=== PATIENT | male | born 1940 | race Caucasian/White ===

== ENCOUNTER 2018-11-03 07:48 | Outpatient (CLI) | payer MEDICARE | END 2018-11-03 07:49 | disposition home or self-care (01) | LOC: LABBT 07:48 | PROVIDERS: ATTEND Thoracic Surgery (Cardiothoracic Vascular Surgery) | DX: Z01.818 Encounter for other preprocedural examination (principal); I25.10 Atherosclerotic heart disease of native coronary artery without angina pectoris | CPT/HCPCS: 93005; 93010 ==

== ENCOUNTER 2018-11-03 10:15 | Inpatient (IN) | payer MEDICARE ==
[2018-11-03 12:39] LABS: Hemoglobin 13.1 g/dL (14.0-18.0); Mean Corpuscular Hemoglobin 31.5 pg (27.0-31.0); Mean Platelet Volume 6.5 fL (7.4-10.4); Platelet Count 237 thou/uL (130-400); RBC Distribution Width 12.1 % (11.5-14.5); Red Blood Cell (RBC) Count 4.16 mill/uL (4.70-6.10); White Blood Cell (WBC) Count 9.6 thou/uL (4.8-10.8)
[2018-11-03 12:58] LABS: Anion Gap 13 mmol/L (10-20); BUN (Urea Nitrogen) 22 mg/dL (8.4-25.7); Calc. Creatinine Clearance 0 mL/min (70-130); Carbon Dioxide 24 mmol/L (23-31); Chloride 106 mmol/L (98-107); Estimated GFR-MDRD 63; Glucose 98 mg/dL (83-110); Potassium 4.2 mmol/L (3.5-5.1); Sodium 139 mmol/L (136-145)
[2018-11-06] MEDS ORDERED: Fentanyl 100 MCG/2 ML VIAL ONE (06:32)
[2018-11-06] MEDS ORDERED: Vecuronium 10 MG VIAL ONE ×2 (06:32→20:35)
[2018-11-06] MEDS ORDERED: Dexmedetomidine 200 MCG/2 ML VIAL ONE (06:32)
[2018-11-06] MEDS ORDERED: Midazolam HCl 5 mg/5 ml Vial ONE (06:32)
[2018-11-06] MEDS ORDERED: Midazolam HCl 2 mg/2 ml Vial ONE (06:32)
[2018-11-06] MEDS ORDERED: Albumin 5% 500 ML ONE (06:35)
[2018-11-06] MEDS ORDERED: Heparin 10,000 UNITS/1 ML VIAL 30,000 UNITS in Sodium Chloride 0.9% 1,000 ML FS SCH (06:45)
[2018-11-06] MEDS ORDERED: Heparin 10,000 UNITS/1 ML VIAL ONE (08:49)
[2018-11-06] MEDS ORDERED: DOPamine 400 MG/D5W 250 ML 250 ML IVPB PRN (13:12)
[2018-11-06] MEDS ORDERED: Bisacodyl 5 MG TAB PO PRN (13:12)
[2018-11-06] MEDS ORDERED: Potassium Chloride 20 MEQ/100 ML PREMIX BAG IVPB PRN (13:12)
[2018-11-06] MEDS ORDERED: Nitroglycerin 50 MG/250 ML BOT 250 ML IVPB PRN (13:12)
[2018-11-06] MEDS ORDERED: niCARdipine 25 MG in Sodium Chloride 0.9% 250 ML 240 ML IVPB PRN (13:12)
[2018-11-06] MEDS ORDERED: Ondansetron PF 4 MG/2 ML Vial IVP PRN (13:12)
[2018-11-06] MEDS ORDERED: HYDROcodone/Acetaminophen 5/325 mg Tablet PO PRN (13:12)
[2018-11-06] MEDS ORDERED: hydrALAZINE 20 MG/ML VIAL SLOW IVP PRN (13:12)
[2018-11-06] MEDS ORDERED: Fentanyl 100 MCG/2 ML VIAL SLOW IVP PRN (13:12)
[2018-11-06] MEDS ORDERED: Norepinephrine 8 MG/0.9% NS 250 ML IVPB PRN (13:12)
[2018-11-06] MEDS ORDERED: Guaifenesin DM 100-10/5 ML UDCUP PO PRN (13:12)
[2018-11-06] MEDS ORDERED: Hetastarch 6% 500 ML 500 ML IVPB PRN (13:12)
[2018-11-06] MEDS ORDERED: Post-Op Insulin Drip Protocol IVPB ONE (13:12)
[2018-11-06] MEDS ORDERED: Acetaminophen 325 MG TAB PO PRN (13:12)
[2018-11-06] MEDS ORDERED: Mag-Al 1200 mg/1200 mg/30 ML UDCUP PO PRN (13:12)
[2018-11-06] MEDS ORDERED: Promethazine HCl 25 MG/ML VIAL IM PRN (13:12)
[2018-11-06] MEDS ORDERED: Morphine 2 MG/ML SYRINGE SLOW IVP PRN (13:12)
[2018-11-06] MEDS ORDERED: Bisacodyl 10 MG SUPP PR PRN (13:12)
[2018-11-06] MEDS ORDERED: HUMULIN R 100 UNITS in Sodium Chloride 0.9% 100 ML IVPB SCH (13:13)
[2018-11-06] MEDS ORDERED: Dextrose 50% Abboject 50 ML SYRINGE SLOW IVP PRN (13:13)
[2018-11-06] MEDS ORDERED: Dextrose 5% in Water 1,000 ML IV PRN (13:13)
[2018-11-06] MEDS ORDERED: Insulin Regular 300 UNITS/3 ML VIAL SC PRN (13:13)
[2018-11-06 13:14] LABS: Actual Bicarbonate (HCO3a) 22.5 mEq/L (22-28); Base Excess (BEa) -3.1 mEq/L (-2.0 to +3.0); CO2 Tension 42.3 mmHg (35.0-45.0); Calcium, Ionized 1.13 mmol/L (1.12-1.30); Hemoglobin (Hb) 13.4 g/dL (14.0-18.0); O2 Tension (PaO2) 77.6 mmHg (> 70.0); Potassium - ABG Lab 4.09 mmol/L (3.70-5.30); pH, Arterial 7.34 (7.35-7.45)
--- NOTE | 2018-11-06 13:18 | RAD ---
EXAM: Single view of the chest HISTORY: Status post open heart surgery COMPARISON: None FINDINGS: Single view of the chest shows an enlarged cardiomediastinal silhouette. The patient is st atus post sternotomy. A central venous catheter seen with its tip at the atriocaval junction. Mediastinal drains are seen. No pneumothorax is seen. There is no evidence of consolidation, mass, o r pleural effusion. The bones are unremarkable. IMPRESSION: Appropriate position of lines and tubes status post sternotomy
[2018-11-06 13:20] LABS: ALV-art Gradient 154.725 (0-20); Puncture Site ART LINE
[2018-11-06 13:22] LABS: #Eosinphils 0.1 thou/uL (0.0-0.7); #Monocytes 0.7 thou/uL (0.11-0.59); #Neutrophils 16.9 thou/uL (1.40-6.50); %Basophils 0.1 % (0.0-1.0); %Eosinophils 0.7 % (0.0-10.0); %Lymphocytes 10.2 % (21.0-51.0); %Monocytes 3.6 % (0.0-10.0); %Neutrophils 85.4 % (42.0-75.0); Mean Corpuscular HGB CONC 34.1 g/dL (32.0-36.0); Mean Corpuscular Hemoglobin 31.2 pg (27.0-31.0); Mean Corpuscular Volume 91.6 fL (78.0-98.0); Mean Platelet Volume 6.8 fL (7.4-10.4); Platelet Count 214 thou/uL (130-400); RBC Distribution Width 12.2 % (11.5-14.5); Red Blood Cell (RBC) Count 4.15 mill/uL (4.70-6.10); White Blood Cell (WBC) Count 19.8 thou/uL (4.8-10.8)
[2018-11-06] MEDS: Fentanyl 100 MCG/2 ML VIAL SLOW IVP PRN ×2 (13:27→15:40)
[2018-11-06 13:28] LABS: PTT 26.4 SEC (22.9-36.1)
[2018-11-06 13:29] LABS: INR-International Normal Ratio 1.3; Prothrombin Time 16.5 SEC (12.0-14.7)
[2018-11-06] MEDS ORDERED: Magnesium 2 GM/50 ML 2 GM in Premix Bag 1 BAG IVPB SCH (13:30)
[2018-11-06] MEDS: Lactated Ringer's 1,000 ML IV SCH (13:34)
[2018-11-06 13:43] LABS: Anion Gap 14 mmol/L (10-20); BUN (Urea Nitrogen) 21 mg/dL (8.4-25.7); Calc. Creatinine Clearance 71 mL/min (70-130); Calcium 8.4 mg/dL (7.8-10.44); Carbon Dioxide 23 mmol/L (23-31); Chloride 107 mmol/L (98-107); Estimated GFR-MDRD 52; Glucose 196 mg/dL (83-110); Potassium 4.1 mmol/L (3.5-5.1); Sodium 140 mmol/L (136-145)
[2018-11-06] MEDS: CEFAZOLIN 2 GM in Premix Bag 1 BAG IVPB SCH ×2 (13:45→21:00)
[2018-11-06 13:55] VITALS: BMI 36.9
[2018-11-06] MEDS ORDERED: Ketorolac Tromethamine 30 MG/ML VIAL IVP SCH (18:00)
[2018-11-06 18:51] LABS: Hemoglobin 12.6 g/dL (14.0-18.0)
[2018-11-06 19:09] LABS: Potassium 4.3 mmol/L (3.5-5.1)
[2018-11-06] MEDS: Ibuprofen 800 MG TAB PO SCH (19:37)
[2018-11-06] MEDS: Famotidine/PF 20 mg/2ml Vial SLOW IVP SCH (20:12)
[2018-11-06] MEDS: Simvastatin 40 MG TAB PO SCH (20:12)
[2018-11-06] MEDS ORDERED: Calcium Chloride 1 GM/10 ML Abboject SYRINGE ONE (20:35)
[2018-11-06] MEDS ORDERED: Lidocaine 2% PF 100 mg/5 ml Syringe ONE (20:35)
[2018-11-06] MEDS ORDERED: Potassium Chloride 60 MEQ/30 ML VIAL ONE (20:35)
[2018-11-06] MEDS ORDERED: Protamine Sulfate 250 MG/25 ML VIAL ONE (20:35)
[2018-11-06] MEDS ORDERED: Norepinephrine 4 MG/4 ML VIAL ONE (20:35)
[2018-11-06] MEDS ORDERED: Dexamethasone 20 MG/5 ML VIAL ONE (20:35)
[2018-11-06] MEDS ORDERED: Magnesium 5 GM/10 ML VIAL ONE (20:35)
[2018-11-06] MEDS ORDERED: Glycopyrrolate 0.2 MG/ML 5 ML SYRINGE ONE (20:35)
[2018-11-06] MEDS ORDERED: Sodium Bicarb 50 MEQ/50 ML VIAL ONE (20:35)
[2018-11-06] MEDS ORDERED: Heparin 30,000 units/30 ml VIAL ONE (20:35)
[2018-11-06] MEDS ORDERED: Heparin 5,000 UNITS/ML VIAL ONE (20:35)
[2018-11-06] MEDS ORDERED: Cardioplegic Soln 1,000 ML BAG ONE (20:35)
[2018-11-06] MEDS ORDERED: Mannitol 12.5 GM/50 ML ONE (20:35)
[2018-11-06] MEDS ORDERED: Nitroglycerin 50 MG/250 ML BOT ONE (20:35)
[2018-11-06] MEDS ORDERED: PHENYLEPHRINE-NS 100 MCG/ML 10 ML SYRINGE ONE (20:35)
[2018-11-06] MEDS ORDERED: Ketorolac Tromethamine 30 MG/ML VIAL ONE (20:35)
[2018-11-06] MEDS ORDERED: Ondansetron PF 4 MG/2 ML Vial ONE (20:35)
[2018-11-06] MEDS ORDERED: Aminocaproic Acid 5 GM/20 ML VIAL ONE (20:35)
[2018-11-06] MEDS ORDERED: DOPamine 400 MG/10 ML VIAL ONE (20:35)
[2018-11-06] MEDS ORDERED: Thrombin 5000 UNITS/5 ML VIAL ONE (20:35)
[2018-11-06] MEDS ORDERED: Papaverine 60 MG/2 ML VIAL ONE (20:35)
[2018-11-06] MEDS: Zolpidem Tartrate 5 MG TAB PO PRN (21:55)
--- NOTE | 2018-11-06 22:00 | CON ---
DATE OF CONSULTATION: HISTORY OF PRESENT ILLNESS: Jasper Munoz is a 78-year-old white male, patient of Dr. Coronel. He had undergone CABG x2 in 1982 at [facility] in [place]. He has had stents placed in his LAD vein graft and now occluded his vein graft, the LAD fills slowly via collaterals. The circumflex graft remained patent with mild proximal disease. He has undergone redo CABG by Dr. Stevens with LOMBARDO to the LAD and left radial to the obtuse marginal. He has been extubated and denies any shortness of breath. He does complain of some chest discomfort, but no nausea or vomiting. PAST MEDICAL HISTORY: Diabetes, hypertension, hyperlipidemia, gout, rotator cuff tear, and coronary artery disease. PAST SURGICAL HISTORY: CABG x2 to the LAD and obtuse marginal in 1982, coronary angioplasty in 1998, PTCA/stent to the saphenous vein graft to the LAD in June 2016, stent placement in the saphenous vein graft to the LAD in May 2014. MEDICATIONS: 1. Carvedilol 6.25 b.i.d. 2. Allopurinol 100 mg daily. 3. Potassium chloride 10 mEq daily. 4. Zocor 40 mg at bedtime. 5. Montelukast one tablet daily. 6. Z-Matthew 1 g b.i.d. 7. Plavix 75 daily. 8. Aspirin 81 daily. 9. Magnesium 400 mg daily. 10. Iron 325 daily. 11. Ranexa 500 mg b.i.d. 12. Nexium 40 mg daily. 13. Ambien 10 mg at bedtime p.r.n. 14. Centrum Silver. 15. Probiotic 100 mg daily. 16. Metformin 500 mg two tablets q.a.m. and one tablet q.p.m. ALLERGIES: NONE. SOCIAL HISTORY: He smoked 2 packs a day, stopped in 1982 at the time of his myocardial infarction and bypass surgery. REVIEW OF SYSTEMS: Unremarkable. PHYSICAL EXAMINATION: VITAL SIGNS: Blood pressure 124/49 and pulse of 70. HEENT: PERRL. NECK: Supple. CHEST: Clear. CARDIAC: S1 and S2 normal without any S3, S4, or murmurs. ABDOMEN: Normal bowel sounds without tenderness. EXTREMITIES: Revealed no clubbing, cyanosis, or edema. NEUROLOGIC: Grossly intact. SKIN: Warm and dry. LABORATORY DATA: EKG reveals normal sinus rhythm with first-degree AV block and low voltage previous inferior infarction, possible previous anterior infarction. Reportedly echo ejection fraction was 45%. White count 19,800, hemoglobin 13.0, hematocrit 38.0, platelets 214,000. INR 1.3. A pH 7.34, pCO2 of 42.3, pO2 of 77.6. Sodium 140, potassium 4.1, chloride 107, carbon dioxide 23, BUN 21, creatinine 1.32 in August 2018, and LDL was 61. IMPRESSION: 1. Status post redo coronary artery bypass graft x2. The patient currently extubated and doing well. 2. Hypertension. 3. Hypercholesterolemia under good control. 4. Diabetes. 5. Former smoker. 6. History of gout. PLAN: The patient continued to be weaned off his pressors. I will follow the patient with you. Job ID: [id number] MTDD
[2018-11-07] MEDS: HYDROcodone/Acetaminophen 5/325 mg Tablet PO PRN ×4 (01:33→21:12)
[2018-11-07] MEDS: Ibuprofen 800 MG TAB PO SCH ×3 (01:34→17:33)
[2018-11-07 03:24] LABS: #Lymphocytes 1.4 thou/uL (1.20-3.40); #Neutrophils 11.3 thou/uL (1.40-6.50); %Basophils 0.2 % (0.0-1.0); %Eosinophils 0.2 % (0.0-10.0); %Lymphocytes 9.9 % (21.0-51.0); %Monocytes 7.4 % (0.0-10.0); %Neutrophils 82.4 % (42.0-75.0); Hemoglobin 10.3 g/dL (14.0-18.0); Mean Corpuscular HGB CONC 34.5 g/dL (32.0-36.0); Mean Corpuscular Hemoglobin 31.9 pg (27.0-31.0); Mean Corpuscular Volume 92.5 fL (78.0-98.0); Mean Platelet Volume 7.1 fL (7.4-10.4); Platelet Count 159 thou/uL (130-400); RBC Distribution Width 12.2 % (11.5-14.5); Red Blood Cell (RBC) Count 3.24 mill/uL (4.70-6.10); White Blood Cell (WBC) Count 13.7 thou/uL (4.8-10.8)
[2018-11-07 03:44] LABS: Anion Gap 10 mmol/L (10-20); BUN (Urea Nitrogen) 24 mg/dL (8.4-25.7); Calc. Creatinine Clearance 79 mL/min (70-130); Calcium 7.6 mg/dL (7.8-10.44); Carbon Dioxide 24 mmol/L (23-31); Chloride 109 mmol/L (98-107); Estimated GFR-MDRD 59; Glucose 116 mg/dL (83-110); Potassium 4.1 mmol/L (3.5-5.1); Sodium 139 mmol/L (136-145)
[2018-11-07] MEDS: CEFAZOLIN 2 GM in Premix Bag 1 BAG IVPB SCH (05:16)
[2018-11-07] MEDS: Lactated Ringer's 1,000 ML IV SCH ×2 (05:49→15:54)
--- NOTE | 2018-11-07 07:55 | RAD ---
Portable upright frontal chest radiograph: 11/07/2018 COMPARISON: 11/06/2018 HISTORY: Evaluate chest following open heart surgery stable right vascular catheter. Stable drainage catheters overlie the mediastinum. Midline sternotomy wires are stable. No pneumothorax is evident. Mild nonspecific increased linear density noted in the medial aspect of both lung bases. IMPRESSION: Postoperative changes as detailed above.
[2018-11-07] MEDS ORDERED: Aspirin 325 MG TAB PO SCH (09:00)
[2018-11-07] MEDS: Famotidine/PF 20 mg/2ml Vial SLOW IVP SCH ×2 (09:30→20:02)
[2018-11-07] MEDS: Fentanyl 100 MCG/2 ML VIAL SLOW IVP PRN (09:40)
--- NOTE | 2018-11-07 17:26 | OP ---
DATE OF PROCEDURE: 11/06/2018 PREOPERATIVE DIAGNOSIS: Coronary artery disease status post prior coronary artery bypass grafting. PROCEDURE PERFORMED: Redo sternotomy with coronary artery bypass graft x2, left internal mammary artery to the left anterior descending and a left radial artery to an obtuse marginal. CRIMINAL LEGAL ASSISTANT: Dameon Goins MD TRANSFUSION: None. DESCRIPTION OF PROCEDURE: After adequate anesthesia had been obtained, the patient was prepped and draped. Dr. Goins initially exposed the left greater saphenous vein below the prior incision. However, after preparing it, it was not usable. He then turned his attention to the left arm, which had been prepped and draped in anticipation of utilizing the left radial artery. After ensuring good collateral flow, the vessel was harvested. In the meantime, I performed a redo median sternotomy with the oscillating saw, removing all sternal wires. A retractor was placed and the cardiac structures were dissected out anterior. After this had been done, the Favaloro retractor was placed on the left chest, mobilizing the anterior surface of the right and left ventricle and then finally harvesting the left internal mammary artery. The patient was heparinized. The mammary divided distally and passed posterior to the thymus gland. Following this, the aorta was cannulated as was the right atrium and cardiopulmonary bypass was instituted during the remaining of the dissection, freeing up the heart from the pericardium. Following this, the aorta was crossclamped and a liter of cold blood cardioplegia given through the aortic root. Following which, the radial to OM anastomosis was then completed and then the LOMBARDO to LAD anastomosis completed. Following completion of this, the crossclamp was removed and the partial occluding left clamp placed and the rodas of the OM graft was opened and the radial artery was anastomosed here. The obtuse marginal graft was then ligated. The patient was then weaned from cardiopulmonary bypass. Cannula was removed and protamine given systemically. Two mediastinal drains were placed, following which the sternum was reapproximated with #7 interrupted wire using vancomycin paste on the sternal edges, platelet-rich blood, and platelet-poor plasma. Subcutaneous tissue and skin were closed in layers and the patient is to be taken to the ICU in guarded condition. Job ID: [id number]
--- NOTE | 2018-11-07 19:38 | CON ---
DATE OF CONSULTATION: 11/07/2018 HISTORY OF PRESENT ILLNESS: Jasper Munoz is a 78-year-old male. In 1982, he developed shoulder pain when he is 42 years old. His became worried when the shoulder pain (right shoulder pain) did not go away. He went to the local emergency room, who said they were doing an EKG to just be safe. When his EKG and lab work started looking like he was having a heart attack, he was transferred to [facility], where he underwent bypass surgery. Since then, he has had a coronary stent placed in his LAD, vein graft by Dr. Coronel. He told me that he had three stents placed. He subsequently presented for a redo coronary artery bypass grafting with a LOMBARDO to his LAD and a radial to his obtuse marginal, but he has been extubated. PAST MEDICAL HISTORY: Remarkable for diabetes, hypertension, lipid disorder, rotator cuff tear, gout, and saphenous vein graft stenting to his LAD in 2014, PTCA stent to saphenous vein graft to LAD in June of 2016. MEDICATIONS: Prior to admission, he is on, 1. Coreg. 2. Allopurinol. 3. Potassium. 4. Zocor. 5. Singulair. 6. Z-Matthew. 7. Plavix. 8. Aspirin. 9. Magnesium. 10. Iron. 11. Ranexa. 12. Nexium. 13. Ambien. 14. Centrum Silver. 15. Probiotic. 16. Metformin. ALLERGIES: REPORTS NO DRUG ALLERGIES. SOCIAL HISTORY: He is not a smoker not a daily drinker. He quit smoking when he had his heart attack. FAMILY HISTORY: Not obtained. REVIEW OF SYSTEMS: Ten point review of systems completed, otherwise negative. He actually says he is feeling pretty good. PHYSICAL EXAMINATION: VITAL SIGNS: Blood pressure 122/52, heart rate 73, respiratory rate 24, oximetry is 94. HEAD AND NECK: Remarkable for poor dentition. NECK: Supple without lymphadenopathy. LUNGS: Clear. HEART: Regular rhythm. S1 and S2 are normal. No murmurs heard. ABDOMEN: Soft and nontender. EXTREMITIES: Left radial artery graft site incision without erythema. He has no lower extremity edema. NEUROLOGIC: Grossly nonfocal. LABORATORY DATA: White count 13.7, hemoglobin 10.3, platelets 259,000. Sodium 139, potassium 4.1, chloride 109, bicarb 24, BUN 24, creatinine 1.2. IMPRESSION: 1. Status post coronary artery bypass grafting, clinically stable. 2. Obesity. 3. Hypertension. 4. Diabetes. PLAN: Continue to follow the patient while he is in the ICU. He is clinically stable at this time. TIME SPENT: This is a 70-minute consult, with greater than 50% of the time spent in the coordinating care. Job ID: [id number] MTDD
[2018-11-07] MEDS: Simvastatin 40 MG TAB PO SCH (20:02)
[2018-11-07] MEDS: Zolpidem Tartrate 5 MG TAB PO PRN (22:25)
[2018-11-08] MEDS: HYDROcodone/Acetaminophen 5/325 mg Tablet PO PRN (02:16)
[2018-11-08] MEDS: Ibuprofen 800 MG TAB PO SCH (02:17)
[2018-11-08 04:48] LABS: #Eosinphils 0.2 thou/uL (0.0-0.7); #Lymphocytes 1.6 thou/uL (1.20-3.40); #Monocytes 1.2 thou/uL (0.11-0.59); #Neutrophils 12.8 thou/uL (1.40-6.50); %Basophils 0.2 % (0.0-1.0); %Eosinophils 1.2 % (0.0-10.0); %Lymphocytes 10.1 % (21.0-51.0); %Monocytes 7.7 % (0.0-10.0); %Neutrophils 80.8 % (42.0-75.0); Hemoglobin 10.4 g/dL (14.0-18.0); Mean Corpuscular HGB CONC 33.8 g/dL (32.0-36.0); Mean Corpuscular Hemoglobin 31.3 pg (27.0-31.0); Mean Corpuscular Volume 92.7 fL (78.0-98.0); Mean Platelet Volume 7.1 fL (7.4-10.4); Platelet Count 153 thou/uL (130-400); RBC Distribution Width 12.3 % (11.5-14.5); Red Blood Cell (RBC) Count 3.31 mill/uL (4.70-6.10); White Blood Cell (WBC) Count 15.8 thou/uL (4.8-10.8)
[2018-11-08 05:07] LABS: Anion Gap 11 mmol/L (10-20); BUN (Urea Nitrogen) 24 mg/dL (8.4-25.7); Calc. Creatinine Clearance 84 mL/min (70-130); Calcium 7.8 mg/dL (7.8-10.44); Carbon Dioxide 25 mmol/L (23-31); Chloride 104 mmol/L (98-107); Estimated GFR-MDRD 63; Glucose 101 mg/dL (83-110); Potassium 3.8 mmol/L (3.5-5.1); Sodium 136 mmol/L (136-145)
[2018-11-08] MEDS ORDERED: Bisacodyl 5 MG TAB PO PRN (07:24)
[2018-11-08] MEDS ORDERED: Mineral Oil ENEMA PR PRN (07:24)
[2018-11-08] MEDS ORDERED: Ondansetron PF 4 MG/2 ML Vial IVP PRN (07:24)
[2018-11-08] MEDS ORDERED: Bisacodyl 10 MG SUPP PR PRN (07:24)
[2018-11-08] MEDS ORDERED: Mag-Al 1200 mg/1200 mg/30 ML UDCUP PO PRN (07:24)
[2018-11-08] MEDS ORDERED: Nitroglycerin 0.4 MG TAB (25 Tab Bottle) SL PRN (07:24)
[2018-11-08] MEDS ORDERED: Guaifenesin DM 100-10/5 ML UDCUP PO PRN (07:24)
[2018-11-08] MEDS ORDERED: Acetaminophen 325 MG TAB PO PRN (07:24)
[2018-11-08] MEDS: Lactated Ringer's 1,000 ML IV SCH (08:02)
--- NOTE | 2018-11-08 08:34 | RAD ---
CHEST 1 VIEW: Date: 11/08/18 HISTORY: Postop open heart. FINDINGS: Recent postop midline sternotomy with right central line and chest tubes in place. There is cardiomeg amna with some bilateral vascular congestion, and some pleural and parenchymal changes in the left bas e, evidence for recent postoperative change. No significant pneumothorax. IMPRESSION: Overall stable chest. Continue short-term follow-up. POS: LAKSHMI
[2018-11-08] MEDS: Furosemide 40 MG TAB PO SCH (08:45)
[2018-11-08] MEDS: Aspirin 325 mg Enteric Coated Tablet PO SCH (08:45)
[2018-11-08] MEDS: Famotidine 20 MG TAB PO SCH ×2 (08:45→20:29)
[2018-11-08] MEDS: Potassium Chloride 10 MEQ TAB PO SCH (08:45)
[2018-11-08] MEDS: Polyethylene Glycol 3350 17 GM Packet PO SCH (08:46)
--- NOTE | 2018-11-08 09:04 | PRG ---
DATE OF SERVICE: 11/08/2018 SUBJECTIVE: Jasper Robles has no new complaints. His chest tubes are out. OBJECTIVE: VITAL SIGNS: Blood pressure is 121/75, heart rate is 77, respiratory rate is 24, and oximetry is 93% on 2 L. LUNGS: Clear. HEART: Regular rhythm. ABDOMEN: Soft. EXTREMITIES: Without edema. NEURO: Grossly nonfocal. LABORATORY DATA: White count 15.8, hemoglobin 10.4, and platelets 153. Electrolytes are normal. IMPRESSION AND PLAN: Status post redo coronary artery bypass grafting, clinically stable. Hopefully, he will be able to move out of the ICU later today. His chest radiograph shows no new infiltrates. He is hazy at his left base, but clinically this is not causing an issue at this point in time. Intake and output are positive 1103. Overall, he appears to be stable. Job ID: [id number]
[2018-11-08] MEDS ORDERED: Carvedilol 3.125 MG TAB PO SCH (17:30)
[2018-11-08] MEDS: Simvastatin 40 MG TAB PO SCH (20:29)
[2018-11-09] MEDS ORDERED: Furosemide 40 MG/4 ML VIAL SLOW IVP SCH (06:15)
[2018-11-09] MEDS: HYDROcodone/Acetaminophen 5/325 mg Tablet PO PRN ×2 (07:26→23:49)
[2018-11-09] MEDS: Potassium Chloride 10 MEQ TAB PO SCH (08:15)
[2018-11-09] MEDS: Losartan 25 MG TAB PO SCH (08:15)
[2018-11-09] MEDS: Famotidine 20 MG TAB PO SCH ×2 (08:15→20:04)
[2018-11-09] MEDS: cefTRIAXone\\ROCEPHIN 1 GM in Sodium Chloride 0.9% 100 ML IVPB SCH (08:15)
[2018-11-09] MEDS: Furosemide 40 MG TAB PO SCH (08:15)
[2018-11-09] MEDS: Aspirin 325 mg Enteric Coated Tablet PO SCH (08:15)
[2018-11-09] MEDS: Polyethylene Glycol 3350 17 GM Packet PO SCH (08:15)
[2018-11-09] MEDS: Carvedilol 3.125 MG TAB PO SCH ×2 (08:16→17:21)
[2018-11-09] MEDS ORDERED: Amiodarone 150 MG in Dextrose 5% in Water 100 ML IVPB SCH (11:00)
[2018-11-09] MEDS: Amiodarone 450 MG in Dextrose 5% in Water 250 ML IVPB SCH ×2 (11:26→20:05)
[2018-11-09 12:34] LABS: AST (SGOT) 30 U/L (5-34); Anion Gap 13 mmol/L (10-20); Bilirubin, Direct 0.3 mg/dL (0.1-0.3); Bilirubin, Total 0.5 mg/dL (0.2-1.2); Calcium 8.3 mg/dL (7.8-10.44); Carbon Dioxide 21 mmol/L (23-31); Chloride 105 mmol/L (98-107); Potassium 3.7 mmol/L (3.5-5.1); Protein, Total 5.9 g/dL (5.8-8.1); Sodium 135 mmol/L (136-145)
[2018-11-09 16:14] LABS: Albumin 3.3 g/dL (3.4-4.8)
[2018-11-09 16:17] LABS: Glucose 121 mg/dL (83-110)
[2018-11-09 16:19] LABS: Alkaline Phosphatase 62 U/L (40-110)
[2018-11-09 16:20] LABS: Calc. Creatinine Clearance 83 mL/min (70-130); Estimated GFR-MDRD 63
[2018-11-09 16:21] LABS: BUN (Urea Nitrogen) 29 mg/dL (8.4-25.7)
[2018-11-09 16:22] LABS: ALT (SGPT) 12 U/L (8-55); Magnesium 1.9 mg/dL (1.6-2.6)
--- NOTE | 2018-11-09 18:10 | PRG ---
DATE OF SERVICE: 11/09/2018 SUBJECTIVE: Jasper Robles has no complaints. He says he is feeling well. He walked correction down the sellers and back. OBJECTIVE: VITAL SIGNS: He is afebrile, heart rate 76, respiratory rate is 20, oximetry is 93 on 1 L, and blood pressure is 134/63. LUNGS: Clear. HEART: Regular rhythm. ABDOMEN: Soft. All of his tubes are out. He only has a right IJ catheter. LABORATORY DATA: He probably has a small effusion on his radiograph in his left base versus little atelectasis. Overall, he appears to be doing well. His electrolytes today are unremarkable. His creatinine is 1.13 and his potassium is 3.7. IMPRESSION AND PLAN: Status post redo coronary artery bypass grafting with a left internal mammary artery to his left anterior descending and a radial artery to his obtuse marginal. He appears to be doing well. We will see him as needed in the future. Job ID: [id number]
[2018-11-09] MEDS: Simvastatin 40 MG TAB PO SCH (20:04)
[2018-11-10 05:23] LABS: #Basophils 0.1 thou/uL (0.0-0.2); #Eosinphils 0.5 thou/uL (0.0-0.7); #Lymphocytes 2.3 thou/uL (1.20-3.40); #Monocytes 1.7 thou/uL (0.11-0.59); #Neutrophils 10.6 thou/uL (1.40-6.50); %Basophils 0.3 % (0.0-1.0); %Eosinophils 3.2 % (0.0-10.0); %Lymphocytes 15.1 % (21.0-51.0); %Neutrophils 70.3 % (42.0-75.0); Hemoglobin 9.8 g/dL (14.0-18.0); Mean Corpuscular HGB CONC 34.1 g/dL (32.0-36.0); Mean Corpuscular Hemoglobin 31.5 pg (27.0-31.0); Mean Corpuscular Volume 92.4 fL (78.0-98.0); Mean Platelet Volume 6.7 fL (7.4-10.4); Platelet Count 210 thou/uL (130-400); RBC Distribution Width 12.2 % (11.5-14.5); White Blood Cell (WBC) Count 15.1 thou/uL (4.8-10.8)
[2018-11-10 05:47] LABS: Anion Gap 13 mmol/L (10-20); BUN (Urea Nitrogen) 32 mg/dL (8.4-25.7); Calc. Creatinine Clearance 81 mL/min (70-130); Calcium 8.5 mg/dL (7.8-10.44); Carbon Dioxide 26 mmol/L (23-31); Chloride 100 mmol/L (98-107); Estimated GFR-MDRD 61; Glucose 105 mg/dL (83-110); Potassium 3.3 mmol/L (3.5-5.1); Sodium 136 mmol/L (136-145)
[2018-11-10] MEDS ORDERED: Potassium Chloride 20 MEQ TAB PO SCH (06:30)
[2018-11-10] MEDS: cefTRIAXone\\ROCEPHIN 1 GM in Sodium Chloride 0.9% 100 ML IVPB SCH (06:39)
[2018-11-10] MEDS: Carvedilol 3.125 MG TAB PO SCH ×2 (08:20→17:17)
[2018-11-10] MEDS: Aspirin 325 mg Enteric Coated Tablet PO SCH (08:20)
[2018-11-10] MEDS: Potassium Chloride 10 MEQ TAB PO SCH (08:20)
[2018-11-10] MEDS: Furosemide 40 MG TAB PO SCH (08:20)
[2018-11-10] MEDS: Losartan 25 MG TAB PO SCH (08:20)
[2018-11-10] MEDS: Famotidine 20 MG TAB PO SCH ×2 (08:20→21:14)
[2018-11-10] MEDS: Polyethylene Glycol 3350 17 GM Packet PO SCH (08:20)
[2018-11-10] MEDS ORDERED: Amiodarone 200 MG TAB PO SCH (09:15)
[2018-11-10] MEDS: Amiodarone 450 MG in Dextrose 5% in Water 250 ML IVPB SCH (11:58)
[2018-11-10] MEDS: Zolpidem Tartrate 5 MG TAB PO PRN (21:14)
[2018-11-10] MEDS: Amiodarone 200 MG TAB PO SCH (21:14)
[2018-11-10] MEDS: Simvastatin 40 MG TAB PO SCH (21:14)
[2018-11-11] MEDS: cefTRIAXone\\ROCEPHIN 1 GM in Sodium Chloride 0.9% 100 ML IVPB SCH (06:12)
[2018-11-11] MEDS: Carvedilol 3.125 MG TAB PO SCH (08:24)
[2018-11-11] MEDS: Amiodarone 200 MG TAB PO SCH (08:25)
[2018-11-11] MEDS: Potassium Chloride 10 MEQ TAB PO SCH (08:25)
[2018-11-11] MEDS: Losartan 25 MG TAB PO SCH (08:26)
[2018-11-11] MEDS: Furosemide 40 MG TAB PO SCH (08:26)
[2018-11-11] MEDS: Aspirin 325 mg Enteric Coated Tablet PO SCH ×2 (08:26→08:29)
[2018-11-11] MEDS: Famotidine 20 MG TAB PO SCH (08:27)
[2018-11-11] MEDS: Polyethylene Glycol 3350 17 GM Packet PO SCH (08:27)
[2018-11-11 11:36] VITALS: BP 157/67; TEMP 98.3
--- NOTE | 2018-11-12 16:47 | EKG ---
Test Reason : POST CABG Blood Pressure : / mmHG Vent. Rate : 069 BPM Atrial Rate : 069 BPM P-R Int : 268 ms QRS Dur : 096 ms QT Int : 430 ms P-R-T Axes : 020 -20 073 degrees QTc Int : 460 ms Sinus rhythm with 1st degree A-V block Low voltage QRS Inferior infarct (cited on or before 03-NOV-2018) Cannot rule out Anterior infarct , age undetermined Abnormal ECG When compared with ECG of 03-NOV-2018 11:21, (Unconfirmed) No significant change was found Confirmed by XAVIER SARGENT (2) on 11/12/2018 4:47:16 PM Referred By: SOPHIA Confirmed By:XAVIER SARGENT
== END 2018-11-11 12:15 | disposition home health service (06) | DRG 236 ==
LOC: SURG A 11-06 06:11 → CCU 11-06 09:43 → 2NO 11-08 07:35
PROVIDERS: ADMIT Thoracic Surgery (Cardiothoracic Vascular Surgery); ATTEND Thoracic Surgery (Cardiothoracic Vascular Surgery)
PROC: 02100AW Bypass Coronary Artery, One Artery from Aorta with Autologous Arterial Tissue, Open Approach (ICD-10-PCS; principal; 2018-11-07)
PROC: 02100Z9 Bypass Coronary Artery, One Artery from Left Internal Mammary, Open Approach (ICD-10-PCS; 2018-11-07)
PROC: 03BC4ZZ Excision of Left Radial Artery, Percutaneous Endoscopic Approach (ICD-10-PCS; 2018-11-07)
PROC: 5A1221Z Performance of Cardiac Output, Continuous (ICD-10-PCS; 2018-11-07)
DX: I25.10 Atherosclerotic heart disease of native coronary artery without angina pectoris (principal); E78.00 Pure hypercholesterolemia, unspecified; M10.9 Gout, unspecified; E66.9 Obesity, unspecified; I10 Essential (primary) hypertension; I48.91 Unspecified atrial fibrillation; Z87.891 Personal history of nicotine dependence; Z95.1 Presence of aortocoronary bypass graft; Z68.36 Body mass index [BMI] 36.0-36.9, adult; Z95.5 Presence of coronary angioplasty implant and graft
CPT/HCPCS: 36415; 36416; 36430; 71045; 80048; 80076; 82805; 83735; 84443; 85025; 85027; 85610; 85730; 86850; 86900; 86901; 93005; 93010; 93798; J0282; J0690; J0696; J1100; J1265; J1642; J1644; J1815; J1885; J1940; J2001; J2150; J2250; J2405; J2440; J2720; J3010; J3370; J3475; J3480; J3490; J7050; J7070; P9045; S0017; S0028

== ENCOUNTER 2022-06-22 09:30 | Outpatient (CLI) | payer MEDICARE ==
[2022-06-22] MEDS ORDERED: Iopamidol 370 76% 100 ML VIAL ONE (10:07)
== END 2022-06-22 09:31 | disposition home or self-care (01) ==
LOC: NM 09:30
PROVIDERS: ATTEND Internal Medicine Hematology & Oncology
DX: C64.1 Malignant neoplasm of right kidney, except renal pelvis (principal); C78.01 Secondary malignant neoplasm of right lung; R91.8 Other nonspecific abnormal finding of lung field; K57.30 Diverticulosis of large intestine without perforation or abscess without bleeding; K46.9 Unspecified abdominal hernia without obstruction or gangrene; N28.81 Hypertrophy of kidney
CPT/HCPCS: 71260; 74177; 78306; A9503; Q9967

== ENCOUNTER 2022-09-23 08:43 | Outpatient (CLI) | payer MEDICARE | END 2022-09-23 08:44 | disposition home or self-care (01) | LOC: CT 08:43 | PROVIDERS: ATTEND Internal Medicine Hematology & Oncology | DX: C64.1 Malignant neoplasm of right kidney, except renal pelvis (principal); C78.01 Secondary malignant neoplasm of right lung; R91.8 Other nonspecific abnormal finding of lung field; N28.89 Other specified disorders of kidney and ureter; R59.0 Localized enlarged lymph nodes | CPT/HCPCS: 71260; 74177; 78306; A9503 ==

== ENCOUNTER 2022-09-30 11:57 | Outpatient (CLI) | payer MEDICARE | END 2022-09-30 11:58 | disposition home or self-care (01) | LOC: RAD 11:57 | PROVIDERS: ATTEND Internal Medicine Critical Care Medicine | DX: R06.00 Dyspnea, unspecified (principal); K44.9 Diaphragmatic hernia without obstruction or gangrene; R91.8 Other nonspecific abnormal finding of lung field | CPT/HCPCS: 71046 ==

== ENCOUNTER 2022-10-21 11:19 | Outpatient (CLI) | payer MEDICARE | END 2022-10-21 11:20 | disposition home or self-care (01) | LOC: RAD 11:19 | PROVIDERS: ATTEND Internal Medicine Critical Care Medicine | DX: R06.00 Dyspnea, unspecified (principal); R91.8 Other nonspecific abnormal finding of lung field | CPT/HCPCS: 71046 ==

== ENCOUNTER 2022-12-30 10:05 | Outpatient (CLI) | payer MEDICARE | END 2022-12-30 10:06 | disposition home or self-care (01) | LOC: RAD 10:05 | PROVIDERS: ATTEND Internal Medicine Critical Care Medicine | DX: R06.00 Dyspnea, unspecified (principal); J18.8 Other pneumonia, unspecified organism | CPT/HCPCS: 71046 ==

== ENCOUNTER 2023-01-17 08:17 | Outpatient (CLI) | payer MEDICARE ==
[2023-01-17] MEDS ORDERED: Iopamidol 370 76% 100 ML VIAL ONE (09:27)
== END 2023-01-17 08:18 | disposition home or self-care (01) ==
LOC: CT 08:17
PROVIDERS: ATTEND Internal Medicine Hematology & Oncology
DX: C64.1 Malignant neoplasm of right kidney, except renal pelvis (principal); C78.01 Secondary malignant neoplasm of right lung; R59.0 Localized enlarged lymph nodes; R91.8 Other nonspecific abnormal finding of lung field; N28.89 Other specified disorders of kidney and ureter; K57.30 Diverticulosis of large intestine without perforation or abscess without bleeding
CPT/HCPCS: 71260; 74177; 78306; A9503; Q9967

== ENCOUNTER 2023-04-26 08:12 | Outpatient (CLI) | payer MEDICARE ==
[2023-04-26] MEDS ORDERED: Iopamidol 370 76% 100 ML VIAL ONE (10:42)
== END 2023-04-26 08:13 | disposition home or self-care (01) ==
LOC: CT 08:12
PROVIDERS: ATTEND Internal Medicine Hematology & Oncology
DX: C64.1 Malignant neoplasm of right kidney, except renal pelvis (principal); C78.01 Secondary malignant neoplasm of right lung; N28.89 Other specified disorders of kidney and ureter; R59.0 Localized enlarged lymph nodes; R91.8 Other nonspecific abnormal finding of lung field; R91.1 Solitary pulmonary nodule
CPT/HCPCS: 71260; 74177; 78306; 82565; Q9967

== ENCOUNTER 2023-08-02 08:01 | Outpatient (CLI) | payer MEDICARE | END 2023-08-02 08:02 | disposition home or self-care (01) | LOC: CT 08:01 | PROVIDERS: ATTEND Internal Medicine Hematology & Oncology | DX: C64.1 Malignant neoplasm of right kidney, except renal pelvis (principal); C78.01 Secondary malignant neoplasm of right lung; R91.8 Other nonspecific abnormal finding of lung field | CPT/HCPCS: 71260; 74177; 82565 ==

== ENCOUNTER 2023-11-18 07:55 | Outpatient (CLI) | payer MEDICARE ==
[2023-11-18] MEDS ORDERED: Iopamidol 370 76% 100 ML VIAL ONE (12:31)
== END 2023-11-18 07:56 | disposition home or self-care (01) ==
LOC: CT 07:55
PROVIDERS: ATTEND Internal Medicine Hematology & Oncology
DX: C64.1 Malignant neoplasm of right kidney, except renal pelvis (principal); C78.01 Secondary malignant neoplasm of right lung; R91.1 Solitary pulmonary nodule; R59.0 Localized enlarged lymph nodes; Z79.899 Other long term (current) drug therapy
CPT/HCPCS: 36415; 70470; 71260; 74177; 78306; 82565; A9503; Q9967

== ENCOUNTER → 2024-01-11 | Outpatient (CLI) | payer MEDICARE | LOC: CT 08:03 | PROVIDERS: ATTEND Internal Medicine Hematology & Oncology | DX: C64.1 Malignant neoplasm of right kidney, except renal pelvis (principal); C78.01 Secondary malignant neoplasm of right lung; R06.02 Shortness of breath; J90 Pleural effusion, not elsewhere classified; Q61.9 Cystic kidney disease, unspecified | CPT/HCPCS: 71275 ==

== ENCOUNTER 2024-01-18 09:41 | Outpatient (CLI) | payer MEDICARE | END 2024-01-18 09:42 | disposition home or self-care (01) | LOC: RAD 09:41 | PROVIDERS: ATTEND Internal Medicine Critical Care Medicine | DX: R06.00 Dyspnea, unspecified (principal); I51.7 Cardiomegaly; J90 Pleural effusion, not elsewhere classified; K44.9 Diaphragmatic hernia without obstruction or gangrene | CPT/HCPCS: 71046 ==

== ENCOUNTER 2024-01-18 12:00 | Emergency (ER) | payer MEDICARE ==
[2024-01-18 13:52] LABS: #Basophils 0.03 10x3/uL (0.0-0.2); %Basophils 0.4 % (0.0-1.0); %Eosinophils 1.6 % (0.0-10.0); %Lymphocytes 18.9 % (21.0-51.0); %Monocytes 8.3 % (0.0-10.0); Hematocrit 27.7 % (42.0-52.0); Hemoglobin 9.1 g/dL (14.0-18.0); Mean Corpuscular HGB CONC 32.9 g/dL (32.0-36.0); Mean Corpuscular Hemoglobin 28.9 pg (27.0-31.0); Mean Corpuscular Volume 87.9 fL (78.0-98.0); Mean Platelet Volume 9.2 fL (7.4-10.4); Platelet Count 351 10x3/uL (130-400); RBC Distribution Width 14.6 % (11.5-14.5); Red Blood Cell (RBC) Count 3.15 mill/uL (4.70-6.10)
[2024-01-18 14:10] LABS: INR-International Normal Ratio 1.2; PTT 34.7 sec (22.9-36.1); Prothrombin Time 15.3 sec (12.0-14.7)
[2024-01-18 14:21] LABS: ALT (SGPT) 14 U/L (8-55); AST (SGOT) 35 U/L (5-34); Albumin 2.5 g/dL (3.4-4.8); Alkaline Phosphatase 94 U/L (40-110); Anion Gap 19 mmol/L (10-20); BUN (Urea Nitrogen) 33 mg/dL (8.4-25.7); Bilirubin, Total 0.3 mg/dL (0.2-1.2); Calc. Creatinine Clearance 0 mL/min (70-130); Calcium 9.2 mg/dL (7.8-10.44); Carbon Dioxide 18 mmol/L (23-31); Chloride 108 mmol/L (98-107); Estimated GFR 55; Globulin 5.3 g/dL (2.4-3.5); Glucose 107 mg/dL (83-110); Potassium 5.1 mmol/L (3.5-5.1); Protein, Total 7.8 g/dL (5.8-8.1); Sodium 140 mmol/L (136-145)
[2024-01-18 14:41] LABS: Fluid, pH - Pleural Fld 7.358 (7.60 - 7.66)
[2024-01-24 10:40] LABS: Fluid, Protein 4.3 g/dL (Not Available)
[2024-01-24 12:13] LABS: BF Color Yellow; Body Fluid Source Pleural Fluid; Clarity Hazy (Clear); Tube # EDTA
[2024-01-24 12:14] LABS: BF RBC Count - Manual 559 /cu.mm; BF WBC/Nonhematics Ct.-Manual 15 /cu.mm
[2024-01-24 12:28] LABS: BF Segmented Neutrophils 48 %; Cell Count Non Hematic 14 %; Eosinophils 4 %; Lymphocytes 34 %
== END 2024-01-18 15:38 | disposition admitted as inpatient to this hospital (09) ==
LOC: ERS 12:00
PROC: 0W9930Z Drainage of Right Pleural Cavity with Drainage Device, Percutaneous Approach (ICD-10-PCS; principal; 2024-01-18)
DX: J90 Pleural effusion, not elsewhere classified (principal); C65.9 Malignant neoplasm of unspecified renal pelvis; E11.9 Type 2 diabetes mellitus without complications; M10.9 Gout, unspecified; E07.9 Disorder of thyroid, unspecified; J30.9 Allergic rhinitis, unspecified; I25.10 Atherosclerotic heart disease of native coronary artery without angina pectoris; Z79.899 Other long term (current) drug therapy; R06.00 Dyspnea, unspecified; I51.7 Cardiomegaly; K44.9 Diaphragmatic hernia without obstruction or gangrene
CPT/HCPCS: 32554; 71046; 80053; 82150; 82465; 82945; 83615; 83986; 84157; 85025; 85060; 85610; 85730; 86850; 86900; 86901; 87040; 87070; 87102; 87116; 87205; 87206; 88112; 88305; 89051; 93005; 99285

== ENCOUNTER 2024-02-10 09:04 | Outpatient (CLI) | payer MEDICARE | END 2024-02-10 09:05 | disposition home or self-care (01) | LOC: RAD 09:04 | PROVIDERS: ATTEND Internal Medicine Critical Care Medicine | DX: R06.00 Dyspnea, unspecified (principal); J90 Pleural effusion, not elsewhere classified | CPT/HCPCS: 71046 ==

== ENCOUNTER 2024-02-24 12:07 | Outpatient (CLI) | payer MEDICARE | END 2024-02-24 12:08 | disposition home or self-care (01) | LOC: RAD 12:07 | PROVIDERS: ATTEND Internal Medicine Hematology & Oncology | DX: C64.1 Malignant neoplasm of right kidney, except renal pelvis (principal); C78.01 Secondary malignant neoplasm of right lung; Z79.899 Other long term (current) drug therapy | CPT/HCPCS: 71046 ==

== ENCOUNTER 2024-02-24 12:49 | Day surgery (SDC) | payer MEDICARE ==
[2024-02-24] MEDS ORDERED: Acetaminophen 500 MG TAB ONE (14:34)
[2024-02-24] MEDS ORDERED: diphenhydrAMINE 25 MG CAP ONE (14:34)
[2024-02-24] MEDS: Acetaminophen 500 MG TAB PO SCH (14:35)
[2024-02-24] MEDS: diphenhydrAMINE 25 MG CAP PO SCH (14:36)
[2024-02-24 18:00] VITALS: BP 144/64; TEMP 98
[2024-02-25] MEDS ORDERED: CEFAZOLIN 2 GM in Sodium Chloride 0.9% 100 ML IVPB SCH (10:00)
== END 2024-02-24 18:06 | disposition short-term general hospital (02) ==
LOC: ONC/OP 12:49
PROVIDERS: ATTEND Internal Medicine Hematology & Oncology
DX: D64.9 Anemia, unspecified (principal); D69.6 Thrombocytopenia, unspecified
CPT/HCPCS: 36430; 86850; 86900; 86901; P9016

== ENCOUNTER 2024-03-27 14:02 | Outpatient (CLI) | payer MEDICARE | END 2024-03-27 14:03 | disposition home or self-care (01) | LOC: RAD 14:02 | PROVIDERS: ATTEND Thoracic Surgery (Cardiothoracic Vascular Surgery) | DX: J90 Pleural effusion, not elsewhere classified (principal) | CPT/HCPCS: 71046 ==

== ENCOUNTER 2024-03-31 02:24 | Inpatient (IN) | payer MEDICARE ==
[2024-03-31] MEDS ORDERED: Ondansetron ODT 4 MG TAB PO PRN (03:44)
[2024-03-31] MEDS ORDERED: Ondansetron PF 4 MG/2 ML Vial IVP PRN (03:44)
[2024-03-31] MEDS ORDERED: Acetaminophen 325 MG TAB PO PRN (03:44)
[2024-03-31] MEDS ORDERED: Ketorolac Tromethamine 30 MG (1 mL) VIAL IVP PRN (03:44)
[2024-03-31] MEDS ORDERED: Dextrose 5% in Water 1,000 ML IV PRN (04:13)
[2024-03-31] MEDS ORDERED: Dextrose 50% Abboject 50 ML SYRINGE SLOW IVP PRN (04:13)
[2024-03-31] MEDS ORDERED: Glucagon 1 MG/ML KIT IM PRN (04:13)
[2024-03-31] MEDS ORDERED: Insulin Lispro 100 UNIT/ML 10 ML VIAL SC PRN ×2 (04:13)
[2024-03-31 04:36] VITALS: BMI 23.8
[2024-03-31 04:58] LABS: #Basophils 0.04 10x3/uL (0.0-0.2); %Basophils 0.4 % (0.0-1.0); %Eosinophils 0.5 % (0.0-10.0); %Lymphocytes 9.5 % (21.0-51.0); %Neutrophils 76.2 % (42.0-75.0); Hematocrit 31.3 % (42.0-52.0); Hemoglobin 9.2 g/dL (14.0-18.0); Mean Corpuscular HGB CONC 29.4 g/dL (32.0-36.0); Mean Corpuscular Hemoglobin 22.8 pg (27.0-31.0); Mean Corpuscular Volume 77.5 fL (78.0-98.0); Mean Platelet Volume 8.7 fL (7.4-10.4); Platelet Count 240 10x3/uL (130-400); RBC Distribution Width 18.1 % (11.5-14.5); Red Blood Cell (RBC) Count 4.04 mill/uL (4.70-6.10)
[2024-03-31 05:13] LABS: ALT (SGPT) 9 U/L (Less than 45); AST (SGOT) 48 U/L (11-34); Albumin 2.1 g/dL (3.1-4.5); Alkaline Phosphatase 208 U/L (40-110); Anion Gap 18 mmol/L (10-20); BUN (Urea Nitrogen) 30 mg/dL (8.4-25.7); Bilirubin, Total 0.3 mg/dL (0.3-1.2); Calc. Creatinine Clearance 36 mL/min (70-130); Calcium 8.3 mg/dL (7.8-10.44); Carbon Dioxide 21 mmol/L (23-31); Chloride 103 mmol/L (98-107); Estimated GFR 44; Globulin 4.2 g/dL (2.4-3.5); Glucose 148 mg/dL (83-110); Potassium 3.6 mmol/L (3.5-5.1); Protein, Total 6.3 g/dL (5.8-8.1); Sodium 138 mmol/L (136-145)
[2024-03-31] MEDS: cefTRIAXone\\ROCEPHIN 1 GM in Sodium Chloride 0.9% 100 ML IVPB SCH (05:20)
[2024-03-31 08:31] LABS: Critical Call Chem Troponin I RESULT DECREASING; Troponin I 0.333 ng/mL (< 0.028)
[2024-03-31] MEDS: Famotidine 20 MG TAB PO SCH (08:43)
[2024-03-31] MEDS: Tamsulosin HCl 0.4 MG CAP PO SCH (08:43)
[2024-03-31] MEDS: Enoxaparin 40 MG (0.4 mL) SYRINGE SC SCH (08:43)
[2024-03-31] MEDS ORDERED: FLU (Fluad Triv) TS24-25 (65UP)/MF59C/PF 45 MCG/0.5 ML Syringe IM ONE (09:00)
[2024-03-31] MEDS ORDERED: Famotidine/PF 20 mg/2ml Vial SLOW IVP SCH (09:00)
[2024-03-31] MEDS: Sodium Chloride 0.9% 1,000 ML IV SCH (17:35)
[2024-03-31] MEDS: Doxycycline 100 MG in Sodium Chloride 0.9% 100 ML IVPB SCH (17:38)
[2024-03-31] MEDS ORDERED: traZODone HCl 50 MG TAB PO PRN (18:14)
[2024-03-31] MEDS: Atorvastatin Calcium 20 MG TAB PO SCH (21:37)
[2024-03-31] MEDS: Mirtazapine 15 MG TAB PO SCH (21:37)
[2024-04-01 04:22] LABS: #Basophils 0.05 10x3/uL (0.0-0.2); %Basophils 0.4 % (0.0-1.0); %Eosinophils 0.6 % (0.0-10.0); %Lymphocytes 5.3 % (21.0-51.0); %Monocytes 5.9 % (0.0-10.0); %Neutrophils 84.4 % (42.0-75.0); Hematocrit 33.3 % (42.0-52.0); Hemoglobin 9.5 g/dL (14.0-18.0); Mean Corpuscular HGB CONC 28.5 g/dL (32.0-36.0); Mean Corpuscular Hemoglobin 22.9 pg (27.0-31.0); Mean Corpuscular Volume 80.2 fL (78.0-98.0); Mean Platelet Volume 8.7 fL (7.4-10.4); Platelet Count 260 10x3/uL (130-400); Red Blood Cell (RBC) Count 4.15 mill/uL (4.70-6.10)
[2024-04-01 04:32] LABS: ALT (SGPT) 8 U/L (Less than 45); AST (SGOT) 33 U/L (11-34); Albumin 2.2 g/dL (3.1-4.5); Alkaline Phosphatase 204 U/L (40-110); Anion Gap 19 mmol/L (10-20); BUN (Urea Nitrogen) 32 mg/dL (8.4-25.7); Bilirubin, Total 0.3 mg/dL (0.3-1.2); Calc. Creatinine Clearance 37 mL/min (70-130); Calcium 8.5 mg/dL (7.8-10.44); Carbon Dioxide 18 mmol/L (23-31); Chloride 106 mmol/L (98-107); Estimated GFR 46; Globulin 4.2 g/dL (2.4-3.5); Glucose 126 mg/dL (83-110); Iron 19 ug/dL (65-175); Iron Binding Capacity, Total 144 mcg/dL (261-462); Potassium 3.4 mmol/L (3.5-5.1); Protein, Total 6.4 g/dL (5.8-8.1); Sodium 140 mmol/L (136-145)
[2024-04-01 04:35] LABS: Iron 19 ug/dL (65-175); Iron Binding Capacity, Total 144 mcg/dL (261-462)
[2024-04-01 04:54] LABS: Anisocytosis SLIGHT = 6-15 cells HPF (0-5); Burr Cells SLIGHT = 2-5 cells HPF (0-1); Ovalocytes SLIGHT = 2-5 cells HPF (0-1); Platelet Adequacy Comment Platelets Normal; Poikilocytosis SLIGHT = 6-15 cells HPF (0-5); Polychromasia SLIGHT = 2-3 cells HPF (0-2)
[2024-04-01] MEDS ORDERED: Zolpidem Tartrate 5 MG TAB PO PRN (08:59)
[2024-04-01 10:03] LABS: INR-International Normal Ratio 1.3; PTT 31.2 sec (22.9-36.1); Prothrombin Time 16.5 sec (12.0-14.7)
[2024-04-01] MEDS: Enoxaparin 80 MG (0.8 mL) SYRINGE SC SCH (11:16)
[2024-04-01] MEDS: Furosemide 20 MG TAB PO SCH (11:26)
[2024-04-01] MEDS: Montelukast Sodium 10 mg Tablet PO SCH (11:26)
[2024-04-01] MEDS: Hydrochlorothiazide 25 MG TAB PO SCH (11:27)
[2024-04-01] MEDS: Carvedilol 6.25 MG TAB PO SCH (11:27)
[2024-04-01] MEDS: Losartan 25 MG TAB PO SCH (11:27)
[2024-04-01] MEDS: Clopidogrel Bisulfate 75 MG TAB PO SCH (11:27)
[2024-04-01] MEDS: Potassium Chloride 10 MEQ TAB PO SCH (11:27)
[2024-04-01] MEDS: Mirtazapine 30 MG TAB PO SCH (23:15)
[2024-04-02] MEDS: Famotidine 20 MG TAB PO SCH (09:07)
[2024-04-02] MEDS: traMADol HCl 50 MG TAB PO PRN (18:30)
[2024-04-03] MEDS: Sodium Chloride 0.9% 100 ML ONE (10:04)
[2024-04-03 14:13] VITALS: BMI 24.0
[2024-04-03] MEDS: Sodium Chloride 0.9% 500 ML IV SCH (17:15)
[2024-04-03 17:24] LABS: Chloride 108 mmol/L (98-107); Potassium 4.2 mmol/L (3.5-5.1); Sodium 139 mmol/L (136-145)
[2024-04-03 17:25] LABS: Calcium 8.2 mg/dL (7.8-10.44)
[2024-04-03 17:26] LABS: Glucose 112 mg/dL (83-110)
[2024-04-03 17:27] LABS: Anion Gap 21 mmol/L (10-20); Carbon Dioxide 14 mmol/L (23-31)
[2024-04-03 17:29] LABS: Calc. Creatinine Clearance 17 mL/min (70-130); Estimated GFR 18
[2024-04-03 17:30] LABS: BUN (Urea Nitrogen) 51 mg/dL (8.4-25.7)
[2024-04-03] MEDS ORDERED: Midodrine HCl 5 MG TAB PO SCH (20:30)
[2024-04-03 20:57] LABS: Base Excess (BEa) -14.2 mEq/L (-2.0 to +3.0); CO2 Tension 38.3 mmHg (35.0-45.0); Calcium, Ionized (arterial) 1.13 mmol/L (1.12-1.30); Carboxyhemoglobin (COHb) 1.2 gm% (0.0-3.0); Hematocrit-ABG 26 % (42.0-52.0); O2 Tension (PaO2), arterial 118.4 mmHg (> 60.0); Potassium - ABG Lab 4.08 mmol/L (3.70-5.30)
[2024-04-03 20:58] LABS: ALV-art Gradient 76.145 mmHg (0-20); Actual Bicarbonate (HCO3a) 13.4 mEq/L (22-28); Puncture Site Right Brachial art; pH, Arterial 7.163 (7.35-7.45)
[2024-04-03] MEDS ORDERED: Doxycycline 100 MG CAP PO SCH (21:00)
[2024-04-03] MEDS ORDERED: NOREPINEPHRINE 8 MG/250 ML-D5W 250 ML IVPB SCH (21:30)
[2024-04-03] MEDS: Sodium Bicarb 50 MEQ/50 ML Abboject 8.4% SYRINGE ONE (21:35)
[2024-04-03] MEDS: Sodium Bicarb 50 MEQ/50 ML Abboject 8.4% SYRINGE IVP SCH (21:50)
[2024-04-03 22:11] LABS: Hematocrit 19.8 % (42.0-52.0); Hemoglobin 6.2 g/dL (14.0-18.0); Mean Corpuscular HGB CONC 31.3 g/dL (32.0-36.0); Mean Corpuscular Hemoglobin 23.3 pg (27.0-31.0); Mean Corpuscular Volume 74.4 fL (78.0-98.0); Mean Platelet Volume 8.9 fL (7.4-10.4); Platelet Count 212 10x3/uL (130-400); RBC Distribution Width 18.5 % (11.5-14.5); Red Blood Cell (RBC) Count 2.66 mill/uL (4.70-6.10)
[2024-04-03] MEDS: Sodium Bicarbonate 50 MEQ in Dextrose 5 %-0.45 % NaCl 1,000 ML IV SCH (22:30)
[2024-04-03] MEDS: NOREPINEPHRINE 8 MG/250 ML-D5W 250 ML ONE (22:36)
[2024-04-03] MEDS: Communication Order-Pharmacy FS ONE (22:36)
[2024-04-03 22:40] LABS: Hematocrit 29.5 % (42.0-52.0); Hemoglobin 8.6 g/dL (14.0-18.0); Mean Corpuscular HGB CONC 29.2 g/dL (32.0-36.0); Mean Corpuscular Hemoglobin 23.3 pg (27.0-31.0); Mean Corpuscular Volume 79.9 fL (78.0-98.0); Mean Platelet Volume 9.4 fL (7.4-10.4); Platelet Count 308 10x3/uL (130-400); RBC Distribution Width 18.8 % (11.5-14.5); Red Blood Cell (RBC) Count 3.69 mill/uL (4.70-6.10)
[2024-04-03 22:55] LABS: ALT (SGPT) 13 U/L (Less than 45); AST (SGOT) 85 U/L (11-34); Albumin 1.9 g/dL (3.1-4.5); Alkaline Phosphatase 281 U/L (40-110); Anion Gap 18 mmol/L (10-20); BUN (Urea Nitrogen) 55 mg/dL (8.4-25.7); Bilirubin, Total 0.3 mg/dL (0.3-1.2); Calc. Creatinine Clearance 16 mL/min (70-130); Calcium 7.9 mg/dL (7.8-10.44); Carbon Dioxide 19 mmol/L (23-31); Chloride 108 mmol/L (98-107); Estimated GFR 17; Globulin 3.4 g/dL (2.4-3.5); Glucose 130 mg/dL (83-110); Potassium 4.1 mmol/L (3.5-5.1); Protein, Total 5.3 g/dL (5.8-8.1); Sodium 141 mmol/L (136-145)
[2024-04-03] MEDS ORDERED: Sodium Bicarbonate 150 MEQ in Dextrose 5 %-0.45 % NaCl 1,000 ML IV SCH (22:58)
[2024-04-03] MEDS ORDERED: Sodium Bicarbonate 150 MEQ in Dextrose 5% in Water 1,000 ML IVP SCH (23:00)
[2024-04-03 23:04] LABS: Anisocytosis SLIGHT = 6-15 cells (100X) (0-5/hpf); Band 6 % (5-11); Hypochromia SLIGHT = 6-15 cells (100X) (0-5/hpf); Lymphocytes 6 % (21-51); Microcytosis SLIGHT = 6-15 cells (100X) (0-5/hpf); Monocytes 5 % (0-10); Neutrophil 83 % (42-75); Nucleated RBC (Manual Ct) 1 % (0); Plasma Cells 0 % (0-0); Polychromasia SLIGHT = 2-3 cells (100X) (0-2/hpf); Total Cell Count 100
[2024-04-03 23:12] VITALS: BP 99/49
[2024-04-03] MEDS: Piperacillin/Tazobactam 3.375 GM in Sodium Chloride 0.9% 100 ML IVPB SCH (23:13)
[2024-04-03] MEDS: Pantoprazole 40 MG VIAL IVP SCH (23:14)
[2024-04-03] MEDS: Sodium Bicarb 50 mEq/50 ML VIAL ONE (23:14)
[2024-04-03] MEDS: DOBUTamine 500 mg/250 ml 250 ML IVPB SCH (23:57)
[2024-04-04] MEDS: DOBUTamine 500 mg/250 ml 250 ML ONE (00:04)
[2024-04-04] MEDS: Sodium Bicarbonate 150 MEQ in Dextrose 5% in Water 1,000 ML IVP SCH (00:31)
[2024-04-04] MEDS: Piperacillin/Tazobactam 3.375 GM in Sodium Chloride 0.9% 100 ML IVPB SCH (01:29)
[2024-04-04] MEDS: Lorazepam 2 MG/ML VIAL SLOW IVP SCH (01:50)
[2024-04-04 06:22] VITALS: TEMP 92.9
[2024-04-04] MEDS ORDERED: Sodium Chloride 0.9% 1,000 ML IV SCH (06:45)
[2024-04-04] MEDS ORDERED: NOREPINEPHRINE 8 MG/250 ML-D5W 250 ML IVPB SCH (06:45)
[2024-04-04] MEDS ORDERED: Vasopressin 20 UNITS in Sodium Chloride 0.9% 50 ML IV PRN (08:28)
[2024-04-04] MEDS ORDERED: Vasopressin 20 UNITS in Sodium Chloride 0.9% 50 ML IV SCH (08:45)
[2024-04-04 08:47] LABS: Actual Bicarbonate (HCO3v) 22.1 mEq/L (22-28); Base Excess -6.6 mEq/L (-2.0 to +3.0); Calcium, Ionized (venous) 0.97 mmol/L (1.16-1.32); Hematocrit-VBG 28 % (42.0-52.0); Hemoglobin (Hb) 9.5 g/dL (12.6-17.4); Potassium (VBG) 4.08 mmol/L (3.70-5.30); Sodium 139 mmol/L (133-146)
[2024-04-04 08:48] LABS: pH (venous) 7.171 (7.32-7.43)
[2024-04-04 08:55] LABS: Hematocrit 28.7 % (42.0-52.0); Hemoglobin 8.1 g/dL (14.0-18.0); Mean Corpuscular HGB CONC 28.2 g/dL (32.0-36.0); Mean Corpuscular Hemoglobin 23.1 pg (27.0-31.0); Mean Platelet Volume 9.1 fL (7.4-10.4); Platelet Count 317 10x3/uL (130-400); RBC Distribution Width 19.1 % (11.5-14.5)
[2024-04-04] MEDS: Sodium Bicarb 50 MEQ/50 ML Abboject 8.4% SYRINGE IVP SCH ×2 (08:55→08:57)
[2024-04-04] MEDS: Sodium Chloride 0.9% 500 ML IV SCH (09:02)
[2024-04-04 09:05] LABS: ALT (SGPT) 14 U/L (Less than 45); AST (SGOT) 87 U/L (11-34); Albumin 1.9 g/dL (3.1-4.5); Alkaline Phosphatase 278 U/L (40-110); Anion Gap 18 mmol/L (10-20); BUN (Urea Nitrogen) 53 mg/dL (8.4-25.7); Bilirubin, Total 0.3 mg/dL (0.3-1.2); Calc. Creatinine Clearance 16 mL/min (70-130); Calcium 7.5 mg/dL (7.8-10.44); Carbon Dioxide 21 mmol/L (23-31); Chloride 105 mmol/L (98-107); Estimated GFR 16; Globulin 3.4 g/dL (2.4-3.5); Glucose 200 mg/dL (83-110); Potassium 4.1 mmol/L (3.5-5.1); Protein, Total 5.3 g/dL (5.8-8.1); Sodium 140 mmol/L (136-145)
[2024-04-04 09:06] LABS: Lactic Acid 2.32 mmol/L (0.50-2.20)
[2024-04-04] MEDS: Hydrocortisone Sod Succ/PF 100 mg/2 ml Vial IVP SCH (09:28)
[2024-04-04] MEDS: Enoxaparin 80 MG (0.8 mL) SYRINGE SC SCH (09:28)
[2024-04-04] MEDS: Pantoprazole 40 MG VIAL IVP SCH (09:28)
[2024-04-04 09:29] LABS: Band 9 % (5-11); Burr Cells SLIGHT = 2-5 cells HPF (0-1); Elliptocytes SLIGHT = 2-5 cells HPF (0-1); Hypochromia SLIGHT = 6-15 cells HPF (0-5); Large Platelets 2.9 % (0-5); Lymphocytes 6 % (21-51); Monocytes 6 % (0-10); Myelocyte 2 % (0-0); Neutrophil 77 % (42-75); Nucleated RBC (Manual Ct) 4 % (0); Platelet Adequacy Comment Platelets Normal; Polychromasia SLIGHT = 2-3 cells HPF (0-2); Schistocytes SLIGHT = 2-5 cells HPF (0-1); Troponin I 0.331 ng/mL (< 0.028); Vacuoles SLIGHT
[2024-04-04] MEDS: Sodium Bicarb 50 MEQ/50 ML Abboject 8.4% SYRINGE ONE (09:29)
[2024-04-04] MEDS: Hydrocortisone Sod Succ/PF 250 mg/2 ml Vial SLOW IVP SCH (09:40)
[2024-04-04] MEDS: Vasopressin In 0.9 % NaCl 40 UNIT in Premix 1 BAG IV SCH (10:08)
[2024-04-04] MEDS: Aspirin 300 MG Suppository PR SCH (10:08)
[2024-04-04] MEDS: Morphine 2 MG/ML VIAL SLOW IVP PRN (11:05)
[2024-04-04] MEDS: Lorazepam 2 MG/ML VIAL SLOW IVP PRN (11:06)
[2024-04-04] MEDS ORDERED: Hydrocortisone Sod Succ/PF 100 mg/2 ml Vial IVP SCH (15:00)
== END 2024-04-04 14:00 | disposition expired | DRG 871 ==
LOC: 2NO 03:21 → UNDOADMIN 03:21 → 2NO 03:49 → INTOOBSV 03:49 → OBSVTOIN 14:30 → CCU 04-03 21:20
PROVIDERS: ADMIT Internal Medicine; ATTEND Internal Medicine
PROC: 3E03329 Introduction of Other Anti-infective into Peripheral Vein, Percutaneous Approach (ICD-10-PCS; principal; 2024-03-31)
PROC: 3E033XZ Introduction of Vasopressor into Peripheral Vein, Percutaneous Approach (ICD-10-PCS; 2024-04-03)
DX: A41.9 Sepsis, unspecified organism (principal); J18.9 Pneumonia, unspecified organism; J96.01 Acute respiratory failure with hypoxia; C64.9 Malignant neoplasm of unspecified kidney, except renal pelvis; J91.0 Malignant pleural effusion; N17.9 Acute kidney failure, unspecified; N40.0 Benign prostatic hyperplasia without lower urinary tract symptoms; E78.5 Hyperlipidemia, unspecified; M10.9 Gout, unspecified; I25.10 Atherosclerotic heart disease of native coronary artery without angina pectoris; Z66 Do not resuscitate; Z95.1 Presence of aortocoronary bypass graft; N18.31 Chronic kidney disease, stage 3a; E11.22 Type 2 diabetes mellitus with diabetic chronic kidney disease; I12.9 Hypertensive chronic kidney disease with stage 1 through stage 4 chronic kidney disease, or unspecified chronic kidney disease; Z79.899 Other long term (current) drug therapy
CPT/HCPCS: 36415; 36416; 36600; 70450; 71045; 80048; 80053; 82728; 82805; 83540; 83550; 83605; 84145; 84484; 85025; 85610; 85730; 87040; 93005; 93010; 93306; 93970; 96372; 96374; G0378; J0696; J1250; J1650; J1720; J2060; J2272; J2470; J2543; J7030; J7042; J7070